=== PATIENT | male | born 1955 | race African-American/Black ===

== ENCOUNTER → 2018-07-14 | Outpatient (CLI) | payer OTHER ==
--- NOTE | 2018-07-14 11:51 | RAD ---
Lumbar spine, 2 views, 07/14/2018: HISTORY: Chronic low back pain The lumbar vertebral heights are well-maintained. There is mild marginal spurring at L4-5 and L5-S1. There are mild degenerative changes involving the facet joints in the lower lumbar spine. No fracture or dislocation is evident. Aortoiliac calcific plaquing is present. IMPRESSION: 1. Mild degenerative change in the lower lumbar spine. 2. No acute abnormality is detected. Cervical spine, 2 views, 07/14/2018: HISTORY: Neck pain There is a slight cervical scoliosis. Slight loss of height of the C6 vertebral body appears old. There is disc space narrowing and moderate marginal spurring at C5-6 and C6-7. There are mild degenerative changes involving scattered facet joints bilaterally. No subluxation is evident. The prevertebral soft tissues are unremarkable. IMPRESSION: Slight chronic loss of height of the C6 vertebral body with moderate degenerative disc disease at C5-6 and C6-7. Electronically signed by: Darrian Morales MD (07/14/2018 11:48 AM) [facility]
== END | disposition home or self-care (01) ==
LOC: RAD 09:19
PROVIDERS: ATTEND Surgery
DX: M50.323 Other cervical disc degeneration at C6-C7 level (principal); M41.82 Other forms of scoliosis, cervical region; M47.896 Other spondylosis, lumbar region
CPT/HCPCS: 72040; 72100